=== PATIENT | male | born 1970 | race Caucasian/White ===

== ENCOUNTER → 2016-12-24 | Outpatient (REF) | payer BC, OTHER ==
[2016-12-24 17:19] LABS: TOTAL PROTEIN 7.4 GM/DL (6.4-8.2)
== END ==
LOC: M LAB REF 16:22
PROVIDERS: ATTEND Nurse Practitioner Adult Health
DX: D16.6 Benign neoplasm of vertebral column (principal); E88.81 Metabolic syndrome and other insulin resistance

== ENCOUNTER → 2019-08-07 | Outpatient (REF) | payer OTHER, BC ==
[2019-08-07 19:24] LABS: CREATININE, URINE 13.1 MG/DL; CREATININE,RANDOM URINE 13.1 MG/DL; MALB URINE SIEMENS < 5.0 MG/L; MAU/CREAT RATIO 38.1 MCG/MG (0.0-30.0)
== END ==
LOC: M LAB REF 16:32
PROVIDERS: ATTEND Internal Medicine
DX: R73.09 Other abnormal glucose (principal)

== ENCOUNTER → 2021-12-03 | Outpatient (CLI) | payer OTHER, BC ==
[~2021-12-03] MED LIST: AMLO1TAB25; ATOR1TAB21; HYDR12.55; LOSA100T45; OMEP40CA5; SUPRSOL2
== END ==
LOC: M LABSMTC 09:39
PROVIDERS: ATTEND Anesthesiology
DX: Z01.812 Encounter for preprocedural laboratory examination (principal); Z11.52 Encounter for screening for COVID-19

== ENCOUNTER 2021-12-08 08:00 | Day surgery (SDC) | payer BC, OTHER ==
[~2021-12-08] VITALS: Ht 185.4 cm; Wt 109.2 kg
[~2021-12-08 08:00] MED LIST changes: +NS 1,000 ML IV ONE
[2021-12-08] MEDS ORDERED: propofoL 200 MG/20 ML VIAL As Ordered ONE (08:47)
[2021-12-08] MEDS ORDERED: LIDOCAINE 2% 100MG/5ML SDV (FOR ANES.) As Ordered ONE (08:47)
[2021-12-08 09:59] VITALS: BP 137/86
== END 2021-12-08 10:03 | disposition home or self-care (01) ==
LOC: M OPP 08:00
PROVIDERS: ATTEND Internal Medicine Gastroenterology
DX: Z12.11 Encounter for screening for malignant neoplasm of colon (principal); K62.1 Rectal polyp; K57.30 Diverticulosis of large intestine without perforation or abscess without bleeding; K64.8 Other hemorrhoids; I10 Essential (primary) hypertension; Z79.899 Other long term (current) drug therapy